=== PATIENT | male | born 1985 | race Two or more races ===

== ENCOUNTER 2016-08-09 08:33 | Emergency (ER) | payer OTHER ==
--- NOTE | 2016-08-09 09:01 | EDPHY ---
H & P Stated Complaint: L collar bone FX? Time Seen by Provider: 08/09/16 08:52 HPI/ROS: CHIEF COMPLAINT: Left clavicle injury HISTORY OF PRESENT ILLNESS: 30-year-old male right-hand dominant, prior history of left clavicle fracture, non operative, complaining of acute left clavicle pain after he was playing ice hockey this morning and his left shoulder impacted the wall of the ice ring. He felt immediate pain. Reproducible pain with range of motion. No peripheral paresthesia, weakness, numbness. No other upper extremity pain or injury. No head injury. PHYSICAL EXAM 1) GENERAL: Well-developed, well-nourished, alert and oriented. Appears uncomfortable when he is asked to move his left upper extremity 2) HEAD: Normocephalic, atraumatic 3) HEENT: [sclera anicteric no raccoon eyes no Valles sign 4) MUSCULOSKELETAL: Tender to palpation left clavicle. Intact skin. No tenting. Deltoid sensation intact. Radial ulnar median nerve function intact distally. Brisk pulses with brisk capillary refill normal color normal temperature distally. - Personal History Current Tetanus/Diphtheria Vaccine: Yes Current Tetanus Diphtheria and Acellular Pertussis (TDAP): Yes - Medical/Surgical History Hx Asthma: Yes Hx Chronic Respiratory Disease: No Hx Diabetes: No Hx Cardiac Disease: No Hx Renal Disease: No Hx Cirrhosis: No Hx Alcoholism: No Hx HIV/AIDS: No Hx Splenectomy or Spleen Trauma: No - Social History Smoking Status: Former smoker Constitutional: Initial Vital Signs Temperature (C) 36.4 C 08/09/16 08:35 Heart Rate 85 08/09/16 08:35 Respiratory Rate 14 08/09/16 08:35 Blood Pressure 122/74 H 08/09/16 08:35 O2 Sat (%) 97 08/09/16 08:35 O2 Delivery Mode Room Air Allergies/Adverse Reactions: No Known Allergies Allergy (Unverified 06/15/10 18:27) Home Medications: Medication Instructions Recorded NO HOME MEDS 06/15/10 Ibuprofen [Motrin (*)] 800 mg PO Q6 #15 tab 08/09/16 oxyCODONE/APAP 5/325 [Percocet 1 tab PO Q6 #7 tab 08/09/16 5/325] Medical Decision Making ED Course/Re-evaluation: Care and management in consultation with secondary supervising physician Dr Gill . Patient was re-evaluated with serial exams. He has no evidence of open fracture, he is neurovascularly intact. Stressed the importance of follow-up with orthopedics. He has been placed in a sling. Given usual and customary orthopedic precautions instructions. Departure - Departure Disposition: Home, Routine, Self-Care Clinical Impression: Activity, ice hockey Closed left clavicular fracture Qualifiers: Encounter type: initial encounter Clavicle location: shaft Fracture alignment: displaced Qualified Code(s): S42.022A - Displaced fracture of shaft of left clavicle, initial encounter for closed fracture Condition: Good Instructions: Clavicle Fracture (ED) Additional Instructions: Return to the ER immediately if you experience discoloration, have worsening pain, numbness, tingling, or any other symptoms that concern you. If you received x-rays in the emergency department today, be advised, that ligamentous , tendon, muscular, and other non-bony injury cannot be fully ruled out. Referrals: Calixto Landry MD [Medical Doctor] - 2-3 days, call for appt. (Dr. Calixto Landry is orthopedic doctor) Prescriptions: Ibuprofen [Motrin (*)] 800 mg PO Q6 #15 tab oxyCODONE/APAP 5/325 [Percocet 5/325] 1 tab PO Q6 #7 tab
[2016-08-09 10:18] VITALS: BP 133/81; PULSE 67; RESP 18; TEMP 98.6; O2SAT 95
== END 2016-08-09 10:18 | disposition home or self-care (01) ==
DX: S42.022A Displaced fracture of shaft of left clavicle, initial encounter for closed fracture (principal); J45.909 Unspecified asthma, uncomplicated; Z87.891 Personal history of nicotine dependence; W22.8XXA Striking against or struck by other objects, initial encounter; Y99.8 Other external cause status; Y93.22 Activity, ice hockey
CPT/HCPCS: A4565